=== PATIENT | female | born 1980 | race Hispanic/Latino ===

== ENCOUNTER 2017-10-03 02:17 | Inpatient (IN) | payer OTHER ==
[2017-10-03] MEDS ORDERED: STADOL IV PRN ×2 (04:10→04:56)
[2017-10-03] MEDS ORDERED: LACTATED RINGERS 1,000 ML IV ONE (04:10)
[2017-10-03] MEDS ORDERED: LACTATED RINGERS 1,000 ML IV SCH ×2 (07:00→08:00)
[2017-10-03 07:23] LABS: Hemoglobin 13.2 gm/dl (10.1-14.3); Mean Corpuscular HGB Conc 34 % (30-34); Mean Corpuscular Hemoglobin 32 pg (28-32); Mean Corpuscular Volume 94 fl (79-97); Platelet Count 356 K/mm3 (140-440); Red Blood Count 4.15 M/mm3 (3.65-5.03); Red Cell Distribution Width 13.9 % (13.2-15.2)
[2017-10-03] MEDS ORDERED: PITOCin/NS 20 UNIT/1000ML DRIP 20,000 MILLIUNITS/1,000 ML BAG IV ONE (07:24)
[2017-10-03] MEDS ORDERED: XYLOCAINE 2% INFILTRATI ONE (07:59)
[2017-10-03] MEDS ORDERED: PHENERGAN PO PRN ×2 (07:59→08:03)
[2017-10-03] MEDS ORDERED: MINERAL OIL PO PRN (07:59)
[2017-10-03] MEDS ORDERED: BRETHINE SUB-Q PRN (07:59)
[2017-10-03] MEDS ORDERED: BRETHINE IVP PRN (07:59)
[2017-10-03] MEDS ORDERED: PITOCin/NS 20 UNIT/1000ML DRIP 20 UNITS/1,000 ML BAG IV SCH ×2 (08:00→09:00)
[2017-10-03] MEDS ORDERED: PITOCin/NS 30 UNIT/500ML 30 UNITS/500 ML BAG IV SCH (08:00)
[2017-10-03] MEDS ORDERED: LANSINOH TP PRN (08:03)
[2017-10-03] MEDS ORDERED: MILK OF MAGNESIA PO PRN (08:03)
[2017-10-03] MEDS ORDERED: PHENERGAN PR PRN (08:03)
[2017-10-03] MEDS ORDERED: TUCKS PAD TP PRN (08:03)
[2017-10-03] MEDS ORDERED: BENADRYL PO PRN (08:03)
[2017-10-03] MEDS ORDERED: DULCOLAX PR PRN (08:03)
[2017-10-03] MEDS ORDERED: ZOFRAN IV PRN (08:03)
[2017-10-03] MEDS ORDERED: TYLENOL PO PRN (08:03)
--- NOTE | 2017-10-03 08:09 | History and Physical Report ---
History of Present Illness Date of examination: 10/03/17 Date of admission: 10/03/17 02:18 Chief complaint: Labor History of present illness: Pt is a 36yo WF EDC 10/14/17; EGA 38 3/7 weeks presents to L&D complaining of RUC's q 3-4 mins. She received care at [facility] since 14 weeks and course has been unremarkable. records are available and GBS is Negative. Past History Past Medical History: no pertinent history Past Surgical History: no surgical history Family/Genetic History: heart disease, hypertension Social history: no significant social history, - Obstetrical History Expected Date of Delivery: 10/14/17 Actual Gestation: 38 Week(s) 4 Day(s) : 2 Medications and Allergies Allergies Allergy/AdvReac Type Severity Reaction Status Date / Time No Known Allergies Allergy Unverified 10/03/17 04:10 Home Medications Medication Instructions Recorded Confirmed Last Taken Type No Known Home Medications [No 10/04/17 10/04/17 Unknown History Reported Home Medications] Active Meds: Active Medications Butorphanol Tartrate (Stadol) 2 mg IV Q2H PRN PRN Reason: Labor Pain Last Admin: 10/03/17 04:55 Dose: 2 mg Ephedrine Sulfate (Ephedrine Sulfate) 10 mg IV Q2M PRN PRN Reason: Hypotension Lactated Ringer's (Lactated Ringers) 1,000 mls @ 125 mls/hr IV DIRECT RICH Lactated Ringer's (Lactated Ringers) 1,000 mls @ 125 mls/hr IV DIRECT RICH Oxytocin/Sodium Chloride (Pitocin/Ns 20 Unit/1000ml Drip) 20 units in 1,000 mls @ 125 mls/hr IV DIRECT RICH Oxytocin/Sodium Chloride (Pitocin/Ns 30 Unit/500ml) 30 units in 500 mls @ 1 mls /hr IV TITR RICH; Protocol Lidocaine (Xylocaine 2%) 20 ml INFILTRATI ONCE ONE Stop: 10/03/17 08:00 Mineral Oil (Mineral Oil) 30 ml PO QHS PRN PRN Reason: Constipation Promethazine HCl (Phenergan) 25 mg PO Q6H PRN PRN Reason: Nausea And Vomiting Terbutaline Sulfate (Brethine) 0.25 mg SUB-Q ONCE PRN PRN Reason: Hyperstimulation/Hypertonicity Terbutaline Sulfate (Brethine) 0.25 mg IVP ONCE PRN PRN Reason: Hyperstimulation/Hypertonicity Review of Systems All systems: negative - Vital Signs Vital signs: Vital Signs Pulse BP 87 108/58 10/03/17 02:32 10/03/17 02:32 Temp Pulse Resp BP Pulse Ox 97.9 F 105 H 18 137/71 10/03/17 02:47 10/03/17 08:00 10/03/17 02:47 10/03/17 08:00 - Physical Exam Breasts: Positive: deferred Cardiovascular: Regular rate Lungs: Positive: Clear to auscultation Abdomen: Positive: normal appearance Genitourinary (Female): Positive: normal external genitalia Vagina: Positive: normal moisture Uterus: Positive: enlarged - Obstetrical FHR: category 1 Uterine Contraction Monitor Mode: External Cervical Dilatation: 10 Cervical Effacement Percentage: 100 Uterine Contraction Pattern: Regular Uterine Tone Measurement Phase: Contraction Uterine Contraction Intensity: Strong/Firm Results Result Diagrams: 10/03/17 20:43 Abnormal lab results 10/03/17 Range/Units 07:00 WBC 16.8 H (4.5-11.0) K/mm3 All other labs normal. Assessment and Plan - Patient Problems (1) 38 weeks gestation of Onset Date: 10/03/17 Current Visit: Yes Status: Resolved Plan to address problem: A: IUP @ 38 3/7 weeks in labor GBS unknown P: Admit to L&D for expectant vaginal delivery Obtain records (2) Active labor at term Onset Date: 10/03/17 Current Visit: Yes Status: Resolved
--- NOTE | 2017-10-03 08:12 | Procedure Note ---
OB Delivery Note - Delivery Date of Delivery: 10/03/17 Surgeon: MICHELLE GONZALEZ (Delivered by Sandy Avery CNM) Estimated blood loss: 200cc - Vaginal Delivery presentation: vertex Delivery position: OA Intrapartum events: precipitous labor- <3hr Delivery induction: none Delivery augmentation: rupture of membranes Delivery monitor: external FHT, external uterine Route of delivery: Delivery placenta: spontaneous Delivery cord: 3 umbilical vessels Episiotomy: none Delivery laceration: 2nd degree (perineal) Delivery repair: vicryl Anesthesia: local Delivery comments: Infant delivered OA and placed on Mom's chest for [id number] bonding and delayed cord clamping - A at 1 minute: 8 at 5 minutes: 9 Gender: Female (2619gms)
[2017-10-03] MEDS: MOTRIN PO SCH ×2 (08:51→15:41)
[2017-10-03] MEDS ORDERED: SODIUM CHLORIDE FLUSH SYRINGE 10 ML IV NR (09:00)
[2017-10-03] MEDS: PRENATAL VITAMIN PO SCH (11:07)
[2017-10-03] MEDS: NORCO 5/325 PO PRN (11:07)
[2017-10-03] MEDS: FEOSOL PO SCH (11:07)
[2017-10-03 21:06] LABS: Hematocrit 33.6 % (30.3-42.9); Hemoglobin 11.4 gm/dl (10.1-14.3)
[2017-10-04] MEDS: FEOSOL PO SCH ×3 (01:38→10:50)
[2017-10-04] MEDS: COLACE PO SCH ×3 (01:38→10:49)
[2017-10-04] MEDS: MOTRIN PO SCH ×3 (01:38→08:51)
[2017-10-04] MEDS: NORCO 5/325 PO PRN (01:39)
[2017-10-04] MEDS ORDERED: M-M-R II VACCINE SUB-Q ONE (08:03)
[2017-10-04] MEDS ORDERED: BOOSTRIX IM ONE (08:03)
[2017-10-04] MEDS: PRENATAL VITAMIN PO SCH ×2 (08:51→10:50)
--- NOTE | 2017-10-04 09:13 | Progress Note ---
Assessment and Plan - Patient Problems (1) 38 weeks gestation of Onset Date: 10/03/17 Current Visit: Yes Status: Resolved (2) Active labor at term Onset Date: 10/03/17 Current Visit: Yes Status: Resolved (3) (normal spontaneous vaginal delivery) Onset Date: 10/04/17 Current Visit: Yes Status: Resolved Plan to address problem: A: S/P - PPD #1 Doing well P: may go home today. Subjective - Subjective Date of service: 10/04/17 Principal diagnosis: s/p - PPD #1 Interval history: Pt is feeling well without complaints. Bleeding improved. Wants to go home today. Patient reports: appetite normal, voiding normally, pain well controlled, flatus , ambulating normally, no dizzy ambulation, no nauseated : doing well, bottle feeding Objective - Vital Signs Latest vital signs: Vital Signs Temp Pulse Resp BP BP Pulse Ox 10/04/17 07:00 98.7 F 66 18 114/68 10/04/17 00:00 98.7 F 64 16 118/69 10/03/17 19:30 98.7 F 77 18 106/58 10/03/17 16:30 97.9 F 86 20 117/63 96 10/03/17 11:29 98.3 F 81 20 115/62 97 10/03/17 09:45 98.6 F 67 16 122/69 Intake and Output 10/03/17 10/04/17 10/04/17 22:59 06:59 14:59 Intake Total 420 500 Output Total 650 Balance -230 500 Intake: Oral 120 200 Intake, Free Water 300 300 Output: Urine 650 Void 650 Other: Total, Intake Amount 120 200 Total, Output Amount 650 # Voids Void 1 - Exam Breasts: Present: deferred Cardiovascular: Present: Regular rate Lungs: Present: Clear to auscultation Abdomen: Present: normal appearance, soft Uterus: Present: normal, firm, fundal height below umbilicus Extremities: Present: normal - Labs Labs: Laboratory Tests 10/03/17 10/03/17 10/03/17 07:00 07:00 07:00 WBC 16.8 H RBC 4.15 Hgb 13.2 Hct 39.0 MCV 94 MCH 32 MCHC 34 RDW 13.9 Plt Count 356 RPR Nonreactive Blood Type B POSITIVE Antibody Screen Negative 10/03/17 20:43 WBC RBC Hgb 11.4 Hct 33.6 MCV MCH MCHC RDW Plt Count RPR Blood Type Antibody Screen
--- NOTE | 2017-10-04 10:20 | Discharge Summary ---
Providers - Providers Date of Admission: 10/03/17 02:18 Date of discharge: 10/04/17 Attending physician: MICHELLE GONZALEZ Primary care physician: MICHELLE GONZALEZ Hospitalization Reason for admission: active labor, IUP at term Delivery: Episiotomy: none Laceration: 2nd degree (perineal) Incision: normal Other procedures: none complications: none Discharge diagnosis: IUP at term delivered [place] baby: female Hospital course: Unremarkable. Condition at discharge: Good Disposition: DC-01 TO HOME OR SELFCARE - Discharge Diagnoses (1) 38 weeks gestation of Status: Resolved (2) Active labor at term Status: Resolved Plan - Discharge Medications Prescriptions: Ibuprofen [Motrin 600 MG tab] 600 mg PO Q6H #30 tablet Vit-Fe Fumar-FA [ Vitamin] 1 each PO QDAY #30 tablet - Provider Discharge Summary Activity: routine, no sex for 6 weeks, no heavy lifting 4 weeks, no strenuous exercise Diet: routine Instructions: routine Additional instructions: [] Smoking cessation referral if applicable(refer to patient education folder for contact #) [] Refer to [facility]'s [facility] Booklet Call your doctor immediately for: * Fever > 100.5 * Heavy vaginal bleeding ( >1 pad per hour) * Severe persistent headache * Shortness of breath * Reddened, hot, painful area to leg or breast * Drainage or odor from incision. * Keep incision clean and dry at all times and follow doctor's instructions regarding bathing/showering - Follow up plan Follow up: MICHELLE GONZALEZ MD [Primary Care Provider] - 6 Weeks MATTHEW VILLALOBOS CNM [Advanced Practice Nurse] - 6 Weeks
[2017-10-04 12:00] VITALS: BP 113/71
== END 2017-10-04 14:10 | disposition home or self-care (01) | DRG 775 ==
LOC: TRG 02:17 → LD 02:18 → TRG 02:20 → LD 07:37 → OB 09:54
PROVIDERS: ADMIT Obstetrics & Gynecology; ATTEND Obstetrics & Gynecology
PROC: 10E0XZZ Delivery of Products of Conception, External Approach (ICD-10-PCS; principal; 2017-10-03)
PROC: 0KQM0ZZ Repair Perineum Muscle, Open Approach (ICD-10-PCS; 2017-10-03)
PROC: 10907ZC Drainage of Amniotic Fluid, Therapeutic from Products of Conception, Via Natural or Artificial Opening (ICD-10-PCS; 2017-10-03)
PROC: 3E0234Z Introduction of Serum, Toxoid and Vaccine into Muscle, Percutaneous Approach (ICD-10-PCS; 2017-10-04)
DX: O62.3 Precipitate labor (principal); Z37.0 Single live birth; Z23 Encounter for immunization; Z83.3 Family history of diabetes mellitus; Z82.49 Family history of ischemic heart disease and other diseases of the circulatory system; O70.1 Second degree perineal laceration during delivery; Z3A.38 38 weeks gestation of pregnancy
CPT/HCPCS: 36415; 85014; 85018; 85027; 86592; 86706; 86850; 86900; 86901; J0595; J2590; J7120